=== PATIENT | female | born 1985 ===

== ENCOUNTER 2020-02-19 12:14 | Observation (INO) | payer OTHER ==
[2020-02-19 12:46] VITALS: BP 115/76; PULSE 75
== END 2020-02-19 13:10 | disposition home or self-care (01) ==
LOC: OB 12:14
PROVIDERS: ADMIT Obstetrics & Gynecology; ATTEND Obstetrics & Gynecology
DX: Z34.03 Encounter for supervision of normal first pregnancy, third trimester (principal); Z3A.40 40 weeks gestation of pregnancy
CPT/HCPCS: 59025; G0378

== ENCOUNTER 2020-02-22 09:26 | Inpatient (IN) | payer OTHER ==
[2020-02-22] MEDS ORDERED: XYLOCAINE 1% HCL 20 ML MDV IJ PRN (10:33)
[2020-02-22] MEDS ORDERED: TYLENOL EXTRA STRENGTH 500 MG PO PRN (10:33)
[2020-02-22 11:00] LABS: BASOPHIL % 0.2 % (0.0-0.4); Basophil (Absolute #) 0.01 (0-0.4); Eosinophil % 0.8 % (0.00-5.0); Eosinophil (Absolute #) 0.05 (0-0.5); Hematocrit 31.8 % (35-47); Lymphocyte (Absolute #) 1.03 (1.0-4.6); Lymphocytes % 15.5 % (24.0-44.0); Mean Cell Volume 85.5 fl (78-100); Mean Corpuscular Hemoglobin 26.9 pg (26-32); Mean Corpuscular Hgb Concent. 31.4 g/dl (32-36); Mean Platelet Volume 11.5 fl (7.5-11.0); Monocyte (Absolute #) 0.35 (0.0-1.3); Monocytes % 5.3 % (0.0-12.0); Neutrophil % 78.2 % (36.0-66.0); Platelet Count 208 K/mm3 (150-450); Red Blood Count 3.72 M/mm3 (4.1-5.4); Red Cell Distribution Width 14.3 % (11.5-14.0); White Blood Count 6.6 K/mm3 (4.0-10.5)
[2020-02-22] MEDS ORDERED: PITOCIN 30 UNITS/ LR 500 ML 30 UNITS/500 ML IV.SOLN. IV SCH ×2 (11:00→11:30)
[2020-02-22] MEDS ORDERED: BRETHINE 1 MG/ML SQ PRN (11:27)
[2020-02-22] MEDS ORDERED: Ephedrine Sulfate 50 MG/ML IV PRN (11:27)
[2020-02-22] MEDS ORDERED: Lactated Ringers 1,000 ML IV ONE (11:27)
[2020-02-22] MEDS ORDERED: OB EPIDURAL NAROPIN/SUFENTANIL IN NACL EPIDURAL PRN (11:27)
[2020-02-22 12:06] LABS: Amphetamine,Urine NEGATIVE (NEGATIVE); Barbiturate,Urine NEGATIVE (NEGATIVE); Benzodiazepine,Urine NEGATIVE (NEGATIVE); Cocaine,Urine NEGATIVE (NEGATIVE); Methadone,Urine NEGATIVE (NEGATIVE); Opiate,Urine NEGATIVE (NEGATIVE); PCP,Urine NEGATIVE (NEGATIVE); THC,Urine NEGATIVE (NEGATIVE)
[2020-02-22] MEDS: Lactated Ringers 1,000 ML IV SCH ×3 (13:16→19:12)
[2020-02-23] MEDS: Lactated Ringers 1,000 ML IV SCH (00:40)
[2020-02-23] MEDS ORDERED: TUCKS TP ONE (02:23)
[2020-02-23] MEDS ORDERED: LANSINOH 40 GM ONE (02:23)
[2020-02-23] MEDS ORDERED: Dermoplast Spray ONE (02:24)
[2020-02-23] MEDS ORDERED: Dulcolax 10 MG SUPP PR PRN (02:28)
[2020-02-23] MEDS ORDERED: Restoril 15 MG PO PRN (02:28)
[2020-02-23] MEDS ORDERED: NORCO 5/325 MG PO PRN (02:28)
[2020-02-23] MEDS ORDERED: Mylicon 80MG PO PRN (02:28)
[2020-02-23] MEDS ORDERED: Anucort-HC SUPPOSITORY PR PRN (02:28)
[2020-02-23] MEDS ORDERED: LANSINOH 40 GM TOP PRN (02:28)
[2020-02-23] MEDS ORDERED: Ambien 10 MG PO PRN (02:28)
[2020-02-23] MEDS ORDERED: CORTISONE 1% CREAM TP PRN (02:28)
[2020-02-23] MEDS: Dermoplast Spray TP PRN (02:30)
[2020-02-23] MEDS: TUCKS TP PRN (02:33)
[2020-02-23] MEDS: MOTRIN 400 MG PO PRN ×3 (08:55→22:44)
[2020-02-23] MEDS ORDERED: Adacel Vial IM ONE (09:00)
[2020-02-23] MEDS: FERREX 150 PO SCH (09:47)
[2020-02-23] MEDS: Colace 100 MG PO SCH ×2 (09:47→22:45)
[2020-02-23 14:26] LABS: Absolute Neutrophil Ct (ANC) 10.07 (1.4-6.9); BASOPHIL % 0.1 % (0.0-0.4); Basophil (Absolute #) 0.01 (0-0.4); Eosinophil % 0.4 % (0.00-5.0); Eosinophil (Absolute #) 0.05 (0-0.5); Hematocrit 30.2 % (35-47); Hemoglobin 9.4 gm/dl (12.0-16.0); Lymphocyte (Absolute #) 0.94 (1.0-4.6); Mean Corpuscular Hemoglobin 27.1 pg (26-32); Mean Corpuscular Hgb Concent. 31.1 g/dl (32-36); Mean Platelet Volume 11.9 fl (7.5-11.0); Monocyte (Absolute #) 0.68 (0.0-1.3); Monocytes % 5.8 % (0.0-12.0); Neutrophil % 85.7 % (36.0-66.0); Platelet Count 184 K/mm3 (150-450); Red Blood Count 3.47 M/mm3 (4.1-5.4); Red Cell Distribution Width 14.4 % (11.5-14.0); White Blood Count 11.8 K/mm3 (4.0-10.5)
[2020-02-24] MEDS: TUCKS TP PRN (03:23)
[2020-02-24] MEDS: Dermoplast Spray TP PRN (03:24)
[2020-02-24 04:08] VITALS: O2SAT 99
[2020-02-24] MEDS: Colace 100 MG PO SCH (09:17)
[2020-02-24] MEDS: MOTRIN 400 MG PO PRN (09:17)
[2020-02-24] MEDS: FERREX 150 PO SCH (09:17)
[2020-02-24 15:56] VITALS: BP 122/62; PULSE 86
--- NOTE | 2020-02-24 16:22 | PCM.DS ---
Discharge Summary Date of Admission: 02/22/20 09:26 Admitting Physician: PETER ACEVEDO DO Consults: Consults on Case 02/22/20 11:28 Notify Anesthesia Provider PRN 02/23/20 02:28 Notify Physician ROUTINE Primary Care Provider: RAYRAY AGUILA Allergies Allergies Penicillins Allergy (Unknown, Verified 02/19/20 12:48) [facility] cefaclor [From Ceclor] Allergy (Verified 02/19/20 12:48) [facility] Summary - Hospital Course Hospital Course: pt admitted on february 21 for being in labor with srom at 230 am. pt was rehman bsequently started on pitocin and delivered on feb 22 at 0207 live baby girl without complication. during period pt did very well and now stable for discharge. pt was advised to fu in office in 6 wks for care. allquestions answered to her satisfaction. - Vitals & Intake/Output Vital Signs: Vital Signs Temperature 98.3 F 02/24/20 15:55 Pulse Rate 86 02/24/20 15:55 Respiratory Rate 18 02/24/20 15:55 Blood Pressure 122/62 02/24/20 15:55 O2 Sat by Pulse Oximetry 99 02/24/20 03:00 Intake & Output: Intake & Output 02/22/20 02/23/20 02/24/20 02/25/20 11:59 11:59 11:59 11:59 Intake Total 6690 2000 Output Total 1750 Balance 4940 1999 Weight 81.647 kg - Lab Result Diagrams: 02/23/20 13:48 Lab Results-Last 24 Hrs: Lab Results-Last 24 Hours 02/22/20 Range/Units Unknown Hep Bs Antigen Negative (Negative) Micro Results-Entire Visit: Microbiology 02/22/20 15:45 Urine Culture - Final Catherized NO GROWTH - Discharge Disposition: Home, Self-Care Condition: Stable Prescriptions: No Action Vits W-Ca,Fe,FA(<1Mg) [] 1 tablet PO DAILY Follow up with: GLENNA ALFREDO PA [Primary Care Provider] - 1 Week Forms: OB Discharge Instructions
== END 2020-02-24 16:50 | disposition home or self-care (01) | DRG 807 ==
LOC: OBSVTOIN 09:26 → OB 09:26
PROVIDERS: ADMIT Obstetrics & Gynecology; ATTEND Obstetrics & Gynecology
PROC: 10E0XZZ Delivery of Products of Conception, External Approach (ICD-10-PCS; principal; 2020-02-23)
PROC: 0HQ9XZZ Repair Perineum Skin, External Approach (ICD-10-PCS; 2020-02-23)
DX: O70.0 First degree perineal laceration during delivery (principal); Z37.0 Single live birth; Z3A.40 40 weeks gestation of pregnancy
CPT/HCPCS: 36415; 80307; 84112; 85025; 87086; 87340; 90471; 90715; G0378; J2590; J2795; A9270-GY